=== PATIENT | male | born 1950 | race Caucasian/White ===

== ENCOUNTER → 2017-11-13 | Outpatient (CLI) | payer MEDICARE ==
[~2017-11-13] VITALS: Ht 182.9 cm; Wt 108.4 kg
[~2017-11-13] MED LIST: AMLO5TAB4 PO; METO200T46 PO; REGADENOSON 0.4 MG/5 ML DISP.SYRIN. IV ONE
--- NOTE | 2017-11-13 14:29 | RAD ---
MR#: [id number] Date of Study: 11/13/2017 Ordering Physician: ALEXANDRIA THOMPSON, Referring Physician: TIMMY DAVIS Tech: AMADOR Yuen APPROVED REPORT Test Type: Pharmacological Stress Nurse/Tech: AMADOR Yuen Test Indications: Chronic chest pain - positive CT Calcium score Cardiac History: Father had cardiac History Medications: See EHR Medical History: see EHR Resting ECG: SR Resting Heart Rate: 61 bpm Resting Blood Pressure: 119/82mmHg Pretest Chest Pain: No chest pain Nurse/Tech Notes Consent: The procedure was explained to the patient in lay terms. Informed consent was witnessed. [place] eout was entered into [employer]. History and Stress Test performed by AMADOR Yuen Pharm. Details Pharmacologic stress testing was performed using 0.4mg per 5ml of regadenoson given intravenously ove r 7-10 seconds. POST EXERCISE Max HR: 93 bpm Max Blood Pressure: 141/65mmHg Blood Pressure response to exercise: Normal blood pressure response during stress. Heart Rate response to exercise: normal response Chest Pain: No. INTERPRETATION Stress EKG Conclusion: EKG shows a sinus rhythm. The stress EKG shows no evidence of inducible ischemia. No EKG evidence of stressed induced ischemia. Imaging Protocol IMAGE PROTOCOL: Rest Tc-99m/stress Tc-99m 1 day Rest: Stress: Viability: Radiopharm.Tc99m LhllikbsjQz05f Sestamibi Dose10.4mCi 33.4mCi Duration 17min. 12min. Img Date 11/13/2017 11/13/2017 Inj-Img [id number]. 60min. Rest Admin Site:IV - Right AntecubitalAdministrator: AMADOR Yuen Stress Admin Site: IV - Right AntecubitalAdministrator: AMADOR Yuen STRESS DATA End Diast. Vol.89.0mlAv. Heart Rate83.0bpm LVEDV index BSA1.0mlCardiac Output0.1L/min End Syst. Vol.26.0mlCO Index BSA5.3L/min LVESV index BSA0.0mlMyocardial Ybmp422.0g Eject. Wwvfrwcc53.0% Stress Rates Pk. Fill Rate2.54EDV/secLVtime Pk. Fill 132.29msec Pk. Empty Rate4.19ESV/secLVtime Pk. Hwygm588.85msec 1/3 Pk. Fill1.58EDV/sec Stress Scores Regional WT0.00Summed WT2.00 Regional WM0.00Summed WM0.00 LV Perfusion The stress scans showed mild inferior wall thinning. The rest scans showed no significant defects. Nuclear imaging shows mild inferior wall thinning with stress suggestive of possible reversible ische hoa. Wall Motion Left ventricular systolic function is normal with an ejection fraction of greater than 70%. LV Perf. Quant 17 Seg. SSS4.00 17 Seg. SRS1.00 17 Seg. SDS3.00 Stress Defect Extent (% LAD)0.00Rest Defect Extent (% LAD)0.00Rev. Defect Extent (% LAD)0.00 Stress Defect Extent (% LCX) 20.00Rest Defect Extent (% LCX)10.00Rev. Defect Extent (% LCX)16.30 Stress Defect Extent (% RCA)7.80Rest Defect Extent (% RCA)0.00Rev. Defect Extent (% RCA)6.70 Stress Defect Extent (% MERLIN)8.30Rest Defect Extent (% MERLIN)2.80Rev. Defect Extent (% MERLIN)6.50 Conclusion 1. No EKG evidence of stressed induced ischemia. 2. Nuclear imaging shows mild reversible inferior wall thinning suggestive of possible reversible isc hemia. 3. Normal left ventricular systolic function with an ejection fraction of greater than 70%. 4. Moderate risk Lexiscan nuclear stress test. Signed by : Tristian Troy MD Electronically Approved : 11/13/2017 14:29:04
== END ==
LOC: NM 07:46
PROVIDERS: ATTEND Family Medicine
DX: G89.29 Other chronic pain (principal); R07.9 Chest pain, unspecified; I10 Essential (primary) hypertension; Z87.891 Personal history of nicotine dependence; Z79.01 Long term (current) use of anticoagulants; Z88.7 Allergy status to serum and vaccine
CPT/HCPCS: 78452; 93017; 96374; 96375; 96376; J2785

== ENCOUNTER → 2018-06-15 | Day surgery (SDC) | payer MEDICARE ==
[~2018-06-15] MED LIST changes: +ASPI81TA50 PO; +ATORVASTATIN CA80 MG PO; +EZET10TA18 PO; +LIDOCAINE 2% PF Vial for OR 5 ML VIAL. ONE; +METO50TA6 PO; +MIDAZOLAM HCL PF 2 MG/2 ML VIAL. IV ONE; +ONDANSETRON PF 4 MG/2 ML VIAL. IV PRN; +PROPOFOL 20 ML IV ONE; -REGADENOSON 0.4 MG/5 ML DISP.SYRIN. IV ONE
[2018-06-15] MEDS: IV RINGERS SOLUTION,LACTATED 1,000 ML IV SCH ×2 (07:38→08:29)
[2018-06-15 10:02] VITALS: BP 121/81
--- NOTE | 2018-06-18 15:07 | PATHOLOGY ---
[facility] Accession Number: [id number] . 01 Material submitted: . POLYP AT 130 CM . 01 Clinical history: . Hx colon polyps . 02 Diagnosis: Colon biopsy, polyp at 130 cm: - Tubular adenoma. (JPM:chante; 06/18/2018) QMS/06/18/2018 . 02 Comment: There is no high-grade dysplasia or evidence of malignancy. . 02 Electronically signed: . Isma Ocampo MD, Pathologist NPI- [id number] . 01 Gross description: . Received in formalin labeled "Darell Shirley, polyp at 130 cm," is a single segment of rangel soft tissue measuring 0.5 cm in maximum dimension. The specimen is entirely submitted in cassette A1. (TSD; 06/15/2018) TOB/TOB . 02 Pathologist provided ICD-10: D12.6 . 02 CPT . 076004 Performed at: 01 [facility] [address], [place], [place] [id number] MD Mitch Santiago MD Phone: [phone] Performed at: 02 [facility] [address] [place], [place] [id number] MD Isma Ocampo MD Phone: [phone]
== END | disposition home or self-care (01) ==
LOC: SURG 07:40
PROVIDERS: ATTEND Surgery
DX: Z12.11 Encounter for screening for malignant neoplasm of colon (principal); D12.2 Benign neoplasm of ascending colon; K57.30 Diverticulosis of large intestine without perforation or abscess without bleeding; I10 Essential (primary) hypertension; Z80.0 Family history of malignant neoplasm of digestive organs; Z86.010 Personal history of colon polyps; Z79.82 Long term (current) use of aspirin; Z79.899 Other long term (current) drug therapy
CPT/HCPCS: 45380; 88305; J2704; J7120; J2001

== ENCOUNTER → 2019-05-16 | Outpatient (CLI) | payer MEDICARE ==
[2018-06-15 10:02] VITALS: BP 121/81
[~2019-05-16] MED LIST changes: -LIDOCAINE 2% PF Vial for OR 5 ML VIAL. ONE; -MIDAZOLAM HCL PF 2 MG/2 ML VIAL. IV ONE; -ONDANSETRON PF 4 MG/2 ML VIAL. IV PRN; -PROPOFOL 20 ML IV ONE; +REGADENOSON 0.4 MG/5 ML DISP.SYRIN. IV ONE
--- NOTE | 2019-05-16 14:59 | RAD ---
MR#: [id number] Date of Study: 05/16/2019 Ordering Physician: BRIGIDA HELM, Referring Physician: TIMMY DALY Tech: ENEIDA Olvera ARRT (R) (N) APPROVED REPORT Test Type: Pharmacological Stress Nurse/Tech: LEEANN Meyers CNMT Test Indications: cad Cardiac History: See Electronic Medical Record Medications: See Electronic Medical Record Medical History: See Electronic Medical Record Resting ECG: SR Resting Heart Rate: 74 bpm Resting Blood Pressure: 151/85mmHg Pretest Chest Pain: None Nurse/Tech Notes SR, NO ACUTE CHANGES WITH STRESS Consent: The procedure was explained to the patient in lay terms. Informed consent was witnessed. [place] eout was entered into [employer]. History and Stress Test performed by ENEIDA Olvera ARRT (R) (N) Pharm. Details Pharmacologic stress testing was performed using 0.4mg per 5ml of regadenoson given intravenously ove r 7-10 seconds. Stress Symptoms No chest pain or symptoms. POST EXERCISE Reason for Termination: Infusion complete Target HR: No Max HR: 105 bpm 75% of Maximum Predicted HR: 139 bpm Exercise duration: 6 min:sec, Stage Max Blood Pressure: 162/79mmHg Blood Pressure response to exercise: Normal blood pressure response during stress. Chest Pain: No. Arrhythmia: No. ST Change: No. INTERPRETATION Stress EKG Conclusion: Baseline EKG showed sinus rhythm. No ischemic changes at peak stress. No arr hythmias. Imaging Protocol IMAGE PROTOCOL: Rest Tc-99m/stress Tc-99m 1 day Rest: Stress: Viability: Radiopharm.Tc99m GuurlvmvfUm81x Sestamibi Szmn09gUu 33mCi Img Date 05/16/2019 05/16/2019 Inj-Img [id number]. 60min. Rest Admin Site:IV - Right HandAdministrator: ENEIDA Olvera ARRT (R)(N) Stress Admin Site: IV - Left HandAdministrator: ENEIDA Olvera ARRT (R)(N) STRESS DATA End Diast. Vol.86.0mlAv. Heart Rate89.0bpm End Syst. Vol.26.0mlCO Index BSA0.0L/min Myocardial Idzc078.0gEject. Eqgbvyvs37.0% Stress Rates Pk. Fill Rate3.76EDV/secLVtime Pk. Fill 191.32msec Pk. Empty Rate5.20ESV/secLVtime Pk. Ygeqc946.80msec 10/11 Pk. Fill1.39EDV/sec Stress Scores Regional WT0.00Summed WT4.00 Regional WM0.00Summed WM3.00 LV Perfusion Scintigraphic images showed small fixed defect involving the basal inferior wall consistent with prev ious myocardial infarction without any reversibility. Wall Motion Normal left ventricle systolic function with ejection fraction calculated at 69%. LV Perf. Quant 17 Seg. SSS5.00 17 Seg. SRS5.00 17 Seg. SDS2.00 Stress Defect Extent (% LAD)0.00Rest Defect Extent (% LAD)3.80Rev. Defect Extent (% LAD)0.00 Stress Defect Extent (% LCX) 3.80Rest Defect Extent (% LCX)18.80Rev. Defect Extent (% LCX)3.80 Stress Defect Extent (% RCA)27.80Rest Defect Extent (% RCA)6.70Rev. Defect Extent (% RCA)23.30 Stress Defect Extent (% MERLIN)8.30Rest Defect Extent (% MERLIN)8.50Rev. Defect Extent (% MERLIN)7.20 Conclusion 1. Regadenoson cardioisotope stress test showed small infarct involving the basal inferior wall witho ut any ischemia. 2. Normal left ventricular systolic function with ejection fraction calculated at 69%. 3. Low risk for cardiac events. Signed by : uGilherme Hartley, Electronically Approved : 05/16/2019 14:58:18
== END | disposition home or self-care (01) ==
LOC: NM 07:33
PROVIDERS: ATTEND Internal Medicine Cardiovascular Disease
DX: I21.19 ST elevation (STEMI) myocardial infarction involving other coronary artery of inferior wall (principal); I25.10 Atherosclerotic heart disease of native coronary artery without angina pectoris; I10 Essential (primary) hypertension; I25.2 Old myocardial infarction; Z79.01 Long term (current) use of anticoagulants; Z88.8 Allergy status to other drugs, medicaments and biological substances; Z98.890 Other specified postprocedural states; Z87.891 Personal history of nicotine dependence
CPT/HCPCS: 78452; 93017; A9500

== ENCOUNTER → 2020-03-05 | Outpatient (CLI) | payer MEDICARE ==
[2018-06-15 10:02] VITALS: BP 121/81
[~2020-03-05] MED LIST changes: -EZET10TA18 PO; +EZET10TA20 PO; -REGADENOSON 0.4 MG/5 ML DISP.SYRIN. IV ONE
--- NOTE | 2020-03-05 09:54 | RAD ---
CT MAXILLOFACIAL WO CONTRAST Indication: Chronic sinusitis Technique: Noncontrast CT imaging was performed of the sinuses, multiplanar reconstruction images submitted. One or more of the following individualized dose reduction techniques were utilized for this examination: 1. Automated exposure control 2. Adjustment of the mA and/or kV according to patient size 3. Use of iterative reconstruction technique. Comparison: FINDINGS: There are no air-fluid levels in the paranasal sinuses. Paranasal sinuses are mostly aerated, mild mucosal thickening of the medial left frontal sinus. Mastoid air cells are aerated. Ostiomeatal units are patent bilaterally. There is deviation of the nasal septum to the right. The brain is not fully evaluated, generalized supratentorial atrophy. There is some atherosclerotic calcification of the visualized carotid arteries in the neck bilaterally. IMPRESSION: 1. Paranasal sinuses are mostly aerated other than very minimal left frontal sinus mucosal thickening Electronically signed by: Pritesh Loving MD (03/05/2020 9:51 AM) [id number]
== END | disposition home or self-care (01) ==
LOC: CT 08:58
PROVIDERS: ATTEND Otolaryngology
DX: J34.2 Deviated nasal septum (principal); J32.8 Other chronic sinusitis; J34.89 Other specified disorders of nose and nasal sinuses; I70.8 Atherosclerosis of other arteries
CPT/HCPCS: 70486

== ENCOUNTER 2020-03-10 07:40 | Emergency (ER) | payer MEDICARE ==
[~2020-03-10] VITALS: Ht 180.3 cm; Wt 100.3 kg
[2020-03-10] MEDS ORDERED: ASPIRIN CHEWABLE 81 MG TABLET. PO ONE (08:00)
[2020-03-10] MEDS ORDERED: ONDANSETRON PF 4 MG/2 ML VIAL. IV ONE (08:00)
[2020-03-10 08:16] LABS: BASO % 0 % (0-3); EOS # 0.1 x10^3/uL (0.0-0.7); EOS % 1 % (0-3); HEMATOCRIT 48.4 % (39.0-53.0); HEMOGLOBIN 16.5 g/dL (13.0-17.5); LYMPH # 0.9 x10^3/uL (1.0-4.8); LYMPH % 14 % (24-48); MEAN CORPUSCULAR HEMOGLOBIN 32 pg (25-35); MEAN CORPUSCULAR HGB CONC 34 g/dL (31-37); MEAN CORPUSCULAR VOLUME 95 fL (79-100); MONO # 0.6 x10^3/uL (0.0-1.1); MONO % 9 % (0-9); NEUT # 4.8 x10^3uL (1.8-7.7); NEUT % 76 % (31-73); PLATELET COUNT 196 x10^3/uL (140-400); RED CELL DISTRIBUTION WIDTH 13.1 % (11.5-14.5); WHITE BLOOD COUNT 6.4 x10^3/uL (4.0-11.0)
--- NOTE | 2020-03-10 08:24 | RAD ---
CHEST AP ONLY History: Reason: chest pain / Spl. Instructions: / History: Comparison: None. Findings: No consolidation or pleural effusion. Normal heart size. No pneumothorax. Impression: 1. No acute cardiopulmonary process. Electronically signed by: Rui Lares DO (03/10/2020 8:21 AM) [facility] [place]
[2020-03-10 08:26] LABS: CALCIUM 9.4 mg/dL (8.5-10.1); CREATININE 0.9 mg/dL (0.7-1.3); GFR 84.2; POTASSIUM 4.2 mmol/L (3.5-5.1)
[2020-03-10] MEDS ORDERED: diphenhydrAMINE 50 MG/ML VIAL IVP ONE (08:30)
[2020-03-10] MEDS ORDERED: METOCLOPRAMIDE HCL 10 MG/2 ML VIAL. IVP ONE (08:30)
[2020-03-10 08:34] LABS: ALBUMIN 4.3 g/dL (3.4-5.0); ALBUMIN/GLOBULIN RATIO 1.4 (1.0-1.7); TOTAL BILIRUBIN 1.1 mg/dL (0.2-1.0); TOTAL PROTEIN 7.3 g/dL (6.4-8.2)
--- NOTE | 2020-03-10 08:47 | EKG ---
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
[2020-03-10 09:50] VITALS: BP 147/86
--- NOTE | 2020-03-10 09:50 | PHYS DOC ---
Past History Past Medical History: Arthritis, COPD, GERD, High Cholesterol, Hypertension, Prostatitis Additional Past Medical Histor: RA Past Surgical History: Other Additional Past Surgical Histo: stent Alcohol Use: None General Adult EDM: Chief Complaint: OTHER COMPLAINTS HPI: HPI: Patient is a 69-year-old male who states for several days he has had some indigestion and felt like he is having difficulty swallowing solids. He is noe erating liquids fine. He denies any melena or hematemesis. He has been taking medicine for gas. He denies any chest pain shortness of breath or dyspnea on exertion. He has not had any vomiting or nausea. He denies diaphoresis. He has seen his primary care physician and was started on a medicine for this. [] Review of Systems: Review of Systems: Constitutional: Denies fever or chills Eyes: Denies change in visual acuity HENT: Denies nasal congestion or sore throat Respiratory: Denies cough or shortness of breath Cardiovascular: Denies chest pain or edema GI: Per HPI : Denies dysuria Musculoskeletal: Denies back pain or joint pain Integument: Denies rash Neurologic: Denies headache, focal weakness or sensory changes Endocrine: Denies polyuria or polydipsia Lymphatic: Denies swollen glands Psychiatric: Reports anxiety Heart Score: Risk Factors: Risk Factors: DM, Current or recent (<one month) smoker, HTN, HLP, family history of CAD, obesity. Risk Scores: Score 0 - 3: 2.5% MACE over next 6 weeks - Discharge Home Score 4 - 6: 20.3% MACE over next 6 weeks - Admit for Clinical Observation Score 7 - 10: 72.7% MACE over next 6 weeks - Early Invasive Strategies Current Medications: Current Meds: Current Medications Medications (Trade) Dose Ordered Sig/Octavio Start Time Stop Time Status Last Admin Dose Admin Aspirin (Aspirin Chewable) 324 mg 1X ONCE 03/10/20 08:00 03/10/20 08:09 DC 03/10/20 08:08 324 MG Diphenhydramine HCl (Benadryl) 25 mg 1X ONCE 03/10/20 08:30 03/10/20 08:31 DC Fentanyl Citrate (Fentanyl 2ml Vial) 50 mcg 1X ONCE 03/10/20 08:00 03/10/20 08:09 DC Lorazepam (Ativan Inj) 0.5 mg 1X ONCE 03/10/20 08:30 03/10/20 08:31 DC Metoclopramide HCl (Reglan Vial) 10 mg 1X ONCE 03/10/20 08:30 03/10/20 08:31 DC Ondansetron HCl (Zofran) 4 mg 1X ONCE 03/10/20 08:00 03/10/20 08:09 DC 03/10/20 08:09 4 MG Allergies: Allergies: Allergies Coded Allergies Type Severity Reaction Last Updated Verified influenza virus vacc trivalent, split Allergy Mild SKIN RASH - BRAND UNKNOWN 06/15/18 Yes pravastatin Allergy Mild SKIN REACTION 06/15/18 Yes levothyroxine sodium Allergy Unknown 06/15/18 Yes Physical Exam: PE: Constitutional: Well developed, well nourished, no acute distress, non-toxic appearance. [] HENT: Normocephalic, atraumatic, bilateral external ears normal, oropharynx moist, no oral exudates, nose normal. [] Eyes: PERRLA, EOMI, conjunctiva normal, no discharge. [] Neck: Normal range of motion, no tenderness, supple, no stridor. [] Cardiovascular:Heart rate regular rhythm, no murmur [] Lungs & Thorax: Bilateral breath sounds clear to auscultation [] Abdomen: Bowel sounds normal, soft, no tenderness, no masses, no pulsatile masses. [] Skin: Warm, dry, no erythema, no rash. [] Back: No tenderness, no CVA tenderness. [] Extremities: No tenderness, no cyanosis, no clubbing, ROM intact, no edema. [] Neurologic: Alert and oriented X 3, normal motor function, normal sensory function, no focal deficits noted. [] Psychologic: Extremely anxious [] Current Patient Data: Labs: Laboratory Tests Test 03/10/20 08:04 White Blood Count 6.4 x10^3/uL (4.0-11.0) Red Blood Count 5.10 x10^6/uL (4.30-5.70) Hemoglobin 16.5 g/dL (13.0-17.5) Hematocrit 48.4 % (39.0-53.0) Mean Corpuscular Volume 95 fL (79-100) Mean Corpuscular Hemoglobin 32 pg (25-35) Mean Corpuscular Hemoglobin Concent 34 g/dL (31-37) Red Cell Distribution Width 13.1 % (11.5-14.5) Platelet Count 196 x10^3/uL (140-400) Neutrophils (%) (Auto) 76 % (31-73) H Lymphocytes (%) (Auto) 14 % (24-48) L Monocytes (%) (Auto) 9 % (0-9) Eosinophils (%) (Auto) 1 % (0-3) Basophils (%) (Auto) 0 % (0-3) Neutrophils # (Auto) 4.8 x10^3uL (1.8-7.7) Lymphocytes # (Auto) 0.9 x10^3/uL (1.0-4.8) L Monocytes # (Auto) 0.6 x10^3/uL (0.0-1.1) Eosinophils # (Auto) 0.1 x10^3/uL (0.0-0.7) Basophils # (Auto) 0.0 x10^3/uL (0.0-0.2) Sodium Level 141 mmol/L (136-145) Potassium Level 4.2 mmol/L (3.5-5.1) Chloride Level 102 mmol/L (98-107) Carbon Dioxide Level 28 mmol/L (21-32) Anion Gap 11 (6-14) Blood Urea Nitrogen 6 mg/dL (8-26) L Creatinine 0.9 mg/dL (0.7-1.3) Estimated GFR (Cockcroft-Gault) 84.2 BUN/Creatinine Ratio 7 (6-20) Glucose Level 108 mg/dL (70-99) H Calcium Level 9.4 mg/dL (8.5-10.1) Total Bilirubin 1.1 mg/dL (0.2-1.0) H Aspartate Amino Transferase (AST) 31 U/L (15-37) Alanine Aminotransferase (ALT) 39 U/L (16-63) Alkaline Phosphatase 72 U/L (46-116) Troponin I Quantitative < 0.017 ng/mL (0-0.055) Total Protein 7.3 g/dL (6.4-8.2) Albumin 4.3 g/dL (3.4-5.0) Albumin/Globulin Ratio 1.4 (1.0-1.7) Ethyl Alcohol Level < 10 mg/dL (0-10) Vital Signs: Vital Signs Date Time Temp Pulse Resp B/P (MAP) Pulse Ox O2 Delivery O2 Flow Rate FiO2 03/10/20 07:40 98.1 94 14 142/93 (109) 99 Room Air EKG: EKG: EKG: Sinus tachycardia rate of [address]-T changes [] Radiology/Procedures: Radiology/Procedures: [] Impressions: REASON: chest pain PROCEDURE: CHEST AP ONLY CHEST AP ONLY History: Reason: chest pain / Spl. Instructions: / History: Comparison: None. Findings: No consolidation or pleural effusion. Normal heart size. No pneumothorax. Impression: 1. No acute cardiopulmonary process. Course & Med Decision Making: Course & Med Decision Making Pertinent Labs and Imaging studies reviewed. (See chart for details) [] Dragon Disclaimer: Dragon Disclaimer: This electronic medical record was generated, in whole or in part, using a voice recognition dictation system. Departure Departure: Impression: Primary Impression: Nervous indigestion Disposition: 01 HOME/RESIDENCE PRIOR TO ADM Condition: STABLE Referrals: ALEXANDRIA THOMPSON MD (PCP) BRIAN SINGH MD Schedule an appointment with Dr. Singh he has a rn advice and will help you definitively treat your symptoms. Patient Instructions: Diet for Gastroesophageal Reflux Disease, Adult Additional Instructions: Follow with Dr. Singh at the earliest convenience. ALLEN IRVING DO Mar 10, 2020 09:50
[2020-03-10 10:26] LABS: BARBITURATES NEG (NEG); BENZODIAZEPINES NEG (NEG); CANNABINOIDS NEG (NEG); COCAINE NEG (NEG); METHADONE NEG (NEG); OPIATES NEG (NEG); PHENCYCLIDINE NEG (NEG)
[2020-03-10 10:29] LABS: BILIRUBIN,URINE NEG (NEG); CLARITY,URINE CLEAR; COLOR,URINE YELLOW; GLUCOSE,URINE NEG (NEG); NITRITE,URINE NEG (NEG); UROBILINOGEN,URINE 0.2 mg/dL (0.2 mg/dL)
[2020-03-10 10:30] LABS: BACTERIA,URINE 0 /HPF (0-FEW); RBC,URINE OCC /HPF (0-2); WBC,URINE OCC /HPF (0-4)
[2020-03-10 10:34] LABS: AMPHETAMINE/METHAMPHETAMINE NEG (NEG)
== END 2020-03-10 09:57 | disposition home or self-care (01) ==
LOC: ER 07:40
DX: F45.8 Other somatoform disorders (principal); M19.90 Unspecified osteoarthritis, unspecified site; K21.9 Gastro-esophageal reflux disease without esophagitis; J44.9 Chronic obstructive pulmonary disease, unspecified; E78.00 Pure hypercholesterolemia, unspecified; I10 Essential (primary) hypertension; Z88.8 Allergy status to other drugs, medicaments and biological substances; Z88.7 Allergy status to serum and vaccine
CPT/HCPCS: 36415; 71045; 80053; 80307; 81001; 84484; 85025; 93005; 96374; 99285; G0480; J2405

== ENCOUNTER → 2020-05-28 | Outpatient (CLI) | payer MEDICARE ==
[~2020-05-28] MED LIST changes: +EVOL140P3 SQ; +GABA-586 PO; +OMEP40CA45 PO
== END | disposition home or self-care (01) ==
LOC: LAB 13:11
PROVIDERS: ATTEND Registered Nurse
DX: Z01.818 Encounter for other preprocedural examination (principal); Z11.59 Encounter for screening for other viral diseases; J01.90 Acute sinusitis, unspecified
CPT/HCPCS: U0003-CS

== ENCOUNTER → 2020-06-01 | Day surgery (SDC) | payer MEDICARE ==
[~2020-06-01] MED LIST changes: +ACETAMINOPHEN 325 MG TABLET PO ONE; +EPINEPHrine 30 MG/30 ML VIAL ONE; +GELATIN SPONGE SIZE 12-7MM SPONGE. ONE; +IPRATRPIUM/ALBUTEROL 0.5/2.5MG 3 ML NEBU. NEB PRN; +IV RINGERS SOLUTION,LACTATED 1,000 ML IV SCH; +LIDOCAINE 1%/EPI 1:100,000 20 ML VIAL. IJ ONE; +LIDOCAINE 1%/EPI 1:100,000 20 ML VIAL. ONE; +MIDAZOLAM HCL PF 2 MG/2 ML VIAL. IV ONE; +MIDAZOLAM HCL PF 2 MG/2 ML VIAL. ONE; +ONDANSETRON PF 4 MG/2 ML VIAL. IV PRN; +ONDANSETRON PF 4 MG/2 ML VIAL. ONE; +OXYMETAZOLINE 0.05% NASAL SPRAY 30ML BOTTLE. NS ONE; +PROPOFOL 10,000 MCG/ML (20ML) VIAL IV ONE; +ROCURONIUM 50 MG/5 ML VIAL. ONE; +SUCCINYLCHOLINE 200 MG/10 ML VIAL. ONE; +TRAM50TA PO; +ceFAZolin SODIUM 1 GM VIAL ONE
[2020-06-01 10:53] VITALS: BP 136/83
--- NOTE | 2020-06-01 12:32 | OP ---
DATE OF SURGERY: 06/01/2020 PREOPERATIVE DIAGNOSES: Nasal obstruction from a deviated nasal septum and bilateral inferior nasal turbinate hypertrophy. POSTOPERATIVE DIAGNOSES: Nasal obstruction from a deviated nasal septum and bilateral inferior nasal turbinate hypertrophy. PROCEDURE PERFORMED: Nasal septoplasty and bilateral inferior turbinate reduction using radiofrequency. INDICATIONS FOR THE PROCEDURE: Nasal blockage and difficulty with nasal airflow. The anesthesia was a general anesthetic. The blood loss was estimated at 10-15 mL. DESCRIPTION OF PROCEDURE: The patient was brought to the operating room and placed on the operating room table in the supine position and given a general anesthetic. When he was safely intubated, the table was rotated 90 degrees. His face was then prepped and draped. His nose was cleaned with iodine swabs after which the nose was decongested using Afrin on neurosurgical cottonoids. The inferior turbinates were then examined and they were injected with saline and then a Coblation wand was placed into the anterior one-third of the turbinate structure and radiofrequency energy was applied on each side, allowing the turbinate tissue to contract. The septum was infiltrated with 1% lidocaine with epinephrine. When adequate application was achieved, a curvilinear incision was made along the mucocutaneous border and the right side of the nose and dissection carried down between the mucoperichondrium and periosteum. This was extended to the length of the septum, particularly skeletonizing the deviated septal portion with a spur formation into the right side of the nasal passage. A crossover incision was created, allowing isolation of the spur formation, it was removed. Then, observing that superiorly, the perpendicular plate of the ethmoid remained deviated and it was also partially removed to achieve a midline position. Then, observed at the foot of the septum, which was also deformed, was modified by removing portions of the cartilage and scoring other portions to allow the septum to become a midline structure. The columella was then observed. It was also noted to be deviated into the left side of the nose. It was isolated from surrounding tissue and then the anterior surface was carefully manicured to give it a more contour appearance and allow it to be moved to the midline. The nose was then irrigated and suctioned free. It was observed that tissues remained in the midline position without any external influence after which the elevated septum mucosa was approximated using a plain chromic suture to quilt the mucosa back into position. The incision site was closed with similar suture material. The nose was then cleaned and irrigated and Gelfoam was placed within the nose. The nasopharynx had been previously cleaned and irrigated and suctioned free of any remaining mucus or blood. The procedure was then completed. The patient was recovered from his anesthesia and he was taken to the recovery room in stable condition. MIKE PINEDA DO DR: Gen JOB#: [id number] / [id number]
== END | disposition home or self-care (01) ==
LOC: SURG 06:55
PROVIDERS: ATTEND Otolaryngology
DX: J34.2 Deviated nasal septum (principal); J34.3 Hypertrophy of nasal turbinates; J34.89 Other specified disorders of nose and nasal sinuses; Z88.8 Allergy status to other drugs, medicaments and biological substances; Z79.82 Long term (current) use of aspirin; Z79.899 Other long term (current) drug therapy; Z87.891 Personal history of nicotine dependence
CPT/HCPCS: 30520; 30801; J2250; J2704; J3010; J7120; J2405

== ENCOUNTER → 2020-09-11 | Outpatient (CLI) | payer MEDICARE ==
[2020-06-01 10:53] VITALS: BP 136/83
[~2020-09-11] MED LIST changes: -ACETAMINOPHEN 325 MG TABLET PO ONE; -EPINEPHrine 30 MG/30 ML VIAL ONE; -GELATIN SPONGE SIZE 12-7MM SPONGE. ONE; -IPRATRPIUM/ALBUTEROL 0.5/2.5MG 3 ML NEBU. NEB PRN; -IV RINGERS SOLUTION,LACTATED 1,000 ML IV SCH; -LIDOCAINE 1%/EPI 1:100,000 20 ML VIAL. IJ ONE; -LIDOCAINE 1%/EPI 1:100,000 20 ML VIAL. ONE; -MIDAZOLAM HCL PF 2 MG/2 ML VIAL. IV ONE; -MIDAZOLAM HCL PF 2 MG/2 ML VIAL. ONE; -ONDANSETRON PF 4 MG/2 ML VIAL. IV PRN; -ONDANSETRON PF 4 MG/2 ML VIAL. ONE; -OXYMETAZOLINE 0.05% NASAL SPRAY 30ML BOTTLE. NS ONE; -PROPOFOL 10,000 MCG/ML (20ML) VIAL IV ONE; -ROCURONIUM 50 MG/5 ML VIAL. ONE; -SUCCINYLCHOLINE 200 MG/10 ML VIAL. ONE; -ceFAZolin SODIUM 1 GM VIAL ONE
--- NOTE | 2020-09-12 08:29 | RAD ---
Abdominal and Pelvis CT, Without Contrast: History: Reason: DIVERTICULITIS SMALL AND LARGE INTESTINE, diarrhea, pain x 10 day / Spl. Instructions: / History: Comparison: None. Procedure: Axial images are obtained of the abdomen and pelvis, without IV or oral contrast. Oral Contrast: No Findings: The appendix is normal. The gallbladder is normal. Evaluation of solid organs is limited without contrast. Liver: Small simple cyst in the liver near the fissure. Spleen: Normal. Pancreas: Normal. Adrenal Glands: Normal. Kidneys: There is a 4.5 cm renal cyst arising posteriorly from the mid left kidney. There is a 1.6 cm simple cyst arising laterally from the lower pole the right kidney. There is no free air or free fluid. There is no lymphadenopathy. The urinary bladder is mostly collapsed. There are small diverticula arising from the urinary bladder.. There is no pericolonic inflammation identified. Impression: No acute findings. End impression PQRS Compliance Statement: One or more of the following individualized dose reduction techniques were utilized for this examination: 1. Automated exposure control 2. Adjustment of the mA and/or kV according to patient size 3. Use of iterative reconstruction technique Electronically signed by: Josep Juan III, MD (09/12/2020 8:26 AM) [facility]
== END ==
LOC: CT 14:26
PROVIDERS: ATTEND Family Medicine
DX: K57.32 Diverticulitis of large intestine without perforation or abscess without bleeding (principal); K57.12 Diverticulitis of small intestine without perforation or abscess without bleeding; N32.3 Diverticulum of bladder
CPT/HCPCS: 74176

== ENCOUNTER → 2020-10-20 | Outpatient (CLI) | payer MEDICARE ==
[2020-06-01 10:53] VITALS: BP 136/83
--- NOTE | 2020-10-20 12:27 | CARD ---
MR#: [id number] Date of Study: 10/20/2020 Ordering Physician: BRIGIDA HELM, Referring Physician: BRIGIDA HELM, Tech: Lori Higgins [facility] APPROVED REPORT EXAM: Two-dimensional and M-mode echocardiogram with Doppler and color Doppler. Other Information Quality : Good INDICATION Cardiac Disease: CAD 2D DIMENSIONS RVDd3.3 (2.9-3.5cm)Left Atrium(2D)4.3 (1.6-4.0cm) IVSd1.0 (0.7-1.1cm)Aortic Root(2D)2.9 (2.0-3.7cm) LVDd5.1 (3.9-5.9cm)LVOT Diameter2.3 (1.8-2.4cm) PWd1.0 (0.7-1.1cm)LVDs3.7 (2.5-4.0cm) FS (%) 26.7 %SV64.5 ml LVEF(%)55.0 (>50%) Aortic Valve AoV Peak Wilbert.95.6cm/sAoV VTI18.7cm AO Peak GR.3.7mmHgLVOT Peak Wilbert.74.5cm/s LVOT VTI 16.56cmAO Mean GR.2mmHg FLAVIA (VMAX)3.28cx1BRY (VTI)3.58cm2 Mitral Valve MV E Ropmfduf97.4cm/sMV DECEL QITO172oh MV A Glaqohml21.5cm/sE/A Ratio1.1 Tricuspid Valve TR P. Frdmuehf119bd/sRAP MLGYFURZ6xlDr TR Peak Gr.99edLcTFPT60saYk Pulmonary Vein S1 Eyllomlb17.5cm/sD2 Ledhfwkk38.4cm/s LEFT VENTRICLE The left ventricle is normal size. There is normal left ventricular wall thickness. Left ventricle sy stolic function is low normal. The Ejection Fraction is 50-55%. There is normal LV segmental wall mot ion. Tissue Doppler imaging reveals moderate left ventricular diastolic dysfunction. RIGHT VENTRICLE The right ventricle is normal size. The right ventricular systolic function is normal. ATRIA The left atrium is mildly dilated. The right atrium size is normal. The interatrial septum is intact with no evidence for an atrial septal defect or patent foramen ovale as noted on 2-D or Doppler imagi ng. AORTIC VALVE The aortic valve is mildly thickened but opens well. Doppler and Color Flow revealed no significant a ortic regurgitation. There is no significant aortic valvular stenosis. MITRAL VALVE The mitral valve is calcified but opens well. Mitral annular calcification is mild. There is no evide nce of mitral valve prolapse. There is no mitral valve stenosis. Doppler and Color-flow revealed trac e to mild mitral regurgitation. TRICUSPID VALVE The tricuspid valve is normal in structure and function. Doppler and Color Flow revealed trace to mil d tricuspid regurgitation. The PA pressure was estimated at 25 mmHg. There is no tricuspid valve sten osis. PULMONIC VALVE The pulmonary valve is normal in structure and function. Doppler and Color Flow revealed mild pulmoni c valvular regurgitation. There is no pulmonic valvular stenosis. GREAT VESSELS The aortic root is normal in size. The ascending aorta is mildly dilated at 3.5 cm. The IVC is normal in size and collapses >50% with inspiration. PERICARDIAL EFFUSION There is no evidence of significant pericardial effusion. Critical Notification Critical Value: No <Conclusion> Left ventricle systolic function is low normal. The Ejection Fraction is 50-55%. There is normal LV segmental wall motion. Signed by : Brigida Helm, Electronically Approved : 10/20/2020 12:27:26
== END ==
LOC: ECHO 09:36
PROVIDERS: ATTEND Internal Medicine Cardiovascular Disease
DX: I08.8 Other rheumatic multiple valve diseases (principal); I25.10 Atherosclerotic heart disease of native coronary artery without angina pectoris
CPT/HCPCS: 93306

== ENCOUNTER → 2020-12-04 | Outpatient (CLI) | payer MEDICARE ==
[2020-06-01 10:53] VITALS: BP 136/83
[~2020-12-04] MED LIST changes: +BARIUM SULFATE 60% 355 ML SUSP PO ONE; +BARIUM SULFATE 98% 135 ML SUSP PO ONE; +SIMETHICONE/SOD BICARB/CITRIC ACID PACKET. PO ONE
--- NOTE | 2020-12-04 17:04 | RAD ---
CLINICAL HISTORY: Reason: ABD PAIN, DIFFICULTY SWALLOWING, HX OF DILATION COMPARISON: None available. TECHNIQUE: Effervescent crystals and thick and thin consistency barium was administered to the patien t. Images of the esophagus and proximal stomach were obtained. Fluoroscopy time was 1.4 minutes. Number of images: 14 FINDINGS: Medical [employer] Specialist film demonstrated normal cardiomediastinal silhouette with aortic calcifications. Lungs are ashanti ar. No pleural effusion or pneumothorax. Swallowing was normal resulting in no aspiration of contrast. The esophagus was normal in caliber, di stended by the effervescent crystals. Emptying of contrast in the esophagus was prompt. A small hiata l hernia is seen. Esophageal mucosa is normal without discrete intrinsic or extrinsic filling defect or diverticulum. Gastroesophageal junction was normal in appearance with prompt emptying into the sto mach. Of note a B ring was seen within the distal esophagus with prompt passage of contrast through this si te. On the prone images, esophageal motility was abnormal with ineffectual primary and secondary peristal tic waves. Tertiary waves were intermittently seen. Gastroesophageal reflux was seen to the level of the thoracic inlet. IMPRESSION 1. Abnormal esophageal motility with ineffectual primary and secondary peristaltic waves on the pron e images. 2. Gastroesophageal reflux to the level of the thoracic inlet. 3. Small hiatal hernia. 4. B ring/Schatzki's ring was seen within the distal esophagus with prompt passage of contrast throu gh this site. Electronically signed by: Chriss Del Rio MD (12/04/2020 5:02 PM) [id number]
== END ==
LOC: RAD 08:05
PROVIDERS: ATTEND Family Medicine
DX: K44.9 Diaphragmatic hernia without obstruction or gangrene (principal); K21.9 Gastro-esophageal reflux disease without esophagitis; K22.2 Esophageal obstruction
CPT/HCPCS: 74220

== ENCOUNTER → 2021-05-13 | Outpatient (CLI) | payer MEDICARE ==
[2020-06-01 10:53] VITALS: BP 136/83
[~2021-05-13] MED LIST changes: -BARIUM SULFATE 60% 355 ML SUSP PO ONE; -BARIUM SULFATE 98% 135 ML SUSP PO ONE; -OMEP40CA45 PO; +OMEP40CA7 PO; -SIMETHICONE/SOD BICARB/CITRIC ACID PACKET. PO ONE
--- NOTE | 2021-05-20 09:40 | RAD ---
MR#: [id number] Date of Study: 05/13/2021 Ordering Physician: BRIGIDA LEE, Referring Physician: BRIGIDA LEE, Tech: Sandra Shelley RVT,[facility] APPROVED REPORT Patient Location: OUT-PATIENT Laterality:Bilateral Indications Grayscale images of the bilateral carotid vessels demonstrate mild diffuse intimal hyperplasia withou t any significant plaque. Bilateral carotid velocities are grossly within normal limits overall 0 to less than 50% stenosis based on velocity criteria with antegrade vertebral velocities. Normal ICA t o CCA ratios bilaterally. Risk Factors Hypertension: Hyperlipidemia PAD Smoking Doppler Spectral Velocity Analysis Right Left pCCA 106/15 cm/spCCA 133/25 cm/s mCCA 124/24 cm/smCCA 122/30 cm/s dCCA 104/23 cm/sdCCA 100/21 cm/s ECA 114/19 cm/sECA 102/18 cm/s pICA 54/19 cm/spICA 74/18 cm/s Anthony 78/27 cm/smICA 71/28 cm/s dICA 71/25 cm/sdICA 54/19 cm/s Vert. 43/9 cm/sVert. 50/10 cm/s ICA/CCA 0.63ICA/CCA 0.56 Critical Notification Critical Value: No <Conclusion> 1. No significant extracranial carotid occlusive disease bilaterally Signed by : Brigida Lee, Electronically Approved : 05/20/2021 09:39:48
== END ==
LOC: US 12:47
PROVIDERS: ATTEND Internal Medicine Cardiovascular Disease
DX: I10 Essential (primary) hypertension (principal); E78.5 Hyperlipidemia, unspecified; I73.9 Peripheral vascular disease, unspecified
CPT/HCPCS: 93880